=== PATIENT | female | born 1930 | race Caucasian/White ===

== ENCOUNTER 2019-02-17 14:38 | Observation (INO) | payer BC, OTHER ==
--- NOTE | 2019-02-17 14:41 | PDOC ---
History of Present Illness - General Stated Complaint: CVA/TIA Time Seen by Provider: 02/17/19 14:41 - History of Present Illness Initial Comments: 88 year old female, with PMH of HTN and HLD presenting via EMS with weakness and general disorientation starting at 13:00. The patient was well prior to the event without any noticeable abnormal behavior or other issues. She was fairly well appearing on presentation but stated that she felt off and weak. No fevers , chills, nausea, vomiting, diarrhea, chest pain, SOB, or other symptoms. Her mental status is typically good at home but occasionally she waxes and wanes. 02/17/19 14:44 NIH Stroke Scale - Last Known Well Date/Time & Onset Date Last Known Well: 02/17/19 Time Last Known Well: 13:00 - Initial Evaluation Level of consciousness: Alert Ask patient the month and their age: Answers both correctly Ask patient to open & close eyes; make fist and let go: Obeys both correctly Best gaze (horizontal eye movement): Normal Visual field testing: No visual field loss Facial paresis (Show teeth/raise eyebrows/close eyes tight): Normal symmetrical movement Motor Function: Left Arm: Normal Motor Function: Right Arm: Normal (extends arm 90 (or 45) degrees for 10 seconds without drift Motor Function: Left Leg: Normal (extends leg 30 degrees for 5 seconds without drift) Motor Function: Right Leg: Normal (extends leg 30 degrees for 5 seconds without drift) Limb Ataxia: No ataxia Sensory(Use pinprick test arms,legs,trunk,face/side to side): Normal Best language (Describe picture, name items, read sentences): Mild to moderate aphasia Dysarthria (read several words): Normal articulation Extinction and Inattention: No abnormality - Total Score NIH Stroke Scale Score: 1 Past History - Past Medical History Allergies/Adverse Reactions: Allergies Allergy/AdvReac Type Severity Reaction Status Date / Time No Known Allergies Allergy Verified 11/08/14 11:54 Home Medications: Ambulatory Orders Memantine HCl [Namenda -] 5 mg PO BID #0 tab 05/16/13 Pravastatin Sodium [Pravachol -] 40 mg PO HS #0 tablet 05/16/13 Quinapril/Hydrochlorothiazide [Accuretic 20-12.5 mg Tablet] 1 each PO DAILY #0 tablet 05/16/13 Donepezil HCl [Aricept -] 5 mg PO HS 02/17/19 Fesoterodine Fumarate [Toviaz] 4 mg PO DAILY 02/17/19 Hydrochlorothiazide 25 mg PO BID 02/17/19 HTN: Yes Hypercholesterolemia: Yes - Surgical History Abdominal Surgery: Yes - Suicide/Smoking/Psychosocial Hx Smoking Status: No Smoking History: Never smoked Number of Cigarettes Smoked Daily: 0 Hx Alcohol Use: No Review of Systems - Review of Systems Constitutional: No: Chills, Diaphoresis, Fever, Loss of Appetite Respiratory: No: Cough, Orthopnea, Shortness of Breath Cardiac (ROS): No: Chest Pain, Edema, Irregular Heart Rate ABD/GI: No: Nausea, Vomiting : No: Dysuria, Discharge Musculoskeletal: Yes: Joint Pain, Muscle Pain Integumentary: No: Lesions, Lumps Neurological: Yes: Weakness. No: Headache, Numbness, Paresthesia Hematologic/Lymphatic: No: Anemia, Blood Clots *Physical Exam - Physical Exam General Appearance: Yes: Nourished, Appropriately Dressed. No: Apparent Distress HEENT: positive: EOMI, Normal ENT Inspection, Normal Voice Neck: positive: Trachea midline, Normal Thyroid, Supple. negative: Tender, Rigid Respiratory/Chest: positive: Lungs Clear, Normal Breath Sounds. negative: Chest Tender, Respiratory Distress, Accessory Muscle Use Cardiovascular: positive: Regular Rhythm, Tachycardia. negative: Regular Rate Gastrointestinal/Abdominal: positive: Normal Bowel Sounds, Flat, Soft. negative : Tender Lymphatic: negative: Adenopathy, Tenderness Musculoskeletal: positive: Normal Inspection. negative: Decreased Range of Motion Extremity: positive: Normal Capillary Refill, Normal Inspection, Normal Range of Motion, Other (generally weak). negative: Tender Integumentary: positive: Normal Color, Dry, Warm Neurologic: positive: Fully Oriented, Alert, Normal Mood/Affect, Normal Response , Motor Strength 5/5 ED Treatment Course - LABORATORY CBC & Chemistry Diagram: 02/17/19 14:50 02/17/19 14:50 Medical Decision Making - Medical Decision Making Patient with global weakness and suspicion for TIA. NIHSS 1 on admission because of weakness and code hogue called. Deficits improved and patient nearly at her baseline. However, 02/17/19 17:28
[2019-02-17] MEDS ORDERED: SODIUM CHLORIDE 1,000 ML IV SCH ×2 (14:45→18:45)
[2019-02-17 15:09] LABS: BASO % 0.4 % (0-2.0); EOS % 1.5 % (0-4.5); HEMATOCRIT 39.4 % (32.4-45.2); LYMPH % 35.6 % (8-40); MEAN CELL VOLUME 87.8 fl (80-96); MONO % 5.7 % (3.8-10.2); NEUT % 56.8 % (42.8-82.8); PLATELET COUNT 319 K/MM3 (134-434); RBC 4.49 M/mm3 (3.60-5.2); RDW 13.6 % (11.6-15.6); WHITE BLOOD COUNT 13.4 K/mm3 (4.0-10.0)
[2019-02-17 15:22] LABS: INR 0.96 (0.83-1.09); PROTHROMBIN TIME (PATIENT) 11.3 SEC (9.7-13.0)
[2019-02-17 15:35] LABS: ALBUMIN 3.8 g/dl (3.4-5.0); ALK PHOS 82 U/L (45-117); ANION GAP 9 MMOL/L (8-16); BILIRUBIN,TOTAL 0.2 mg/dL (0.2-1); BLOOD UREA NITROGEN 21 mg/dL (7-18); CALCIUM 10.2 mg/dL (8.5-10.1); CHLORIDE 103 mmol/L (98-107); CHOLESTEROL 182 mg/dL (50-200); CO2 27 mmol/L (21-32); CREATININE 0.8 mg/dL (0.55-1.3); GLUCOSE,RANDOM 109 mg/dL (74-106); HDL CHOLESTEROL 44 mg/dL (40-60); POTASSIUM 3.8 mmol/L (3.5-5.1); SGOT/AST 14 U/L (15-37); SGPT/ALT 20 U/L (13-61); SODIUM 139 mmol/L (136-145); TOT PROT 7.6 g/dl (6.4-8.2); TRIGLYCERIDES 371 mg/dL (0-150)
--- NOTE | 2019-02-17 15:46 | PDOC ---
Documentation entered by Phoenix Stephens SCRIBE, acting as scribe for Laura Martínez MD. Laura Martínez MD: This documentation has been prepared by the bobbyibe, Phoenix Stephens SCRIBE, under my direction and personally reviewed by me in its entirety. I confirm that the documentation accurately reflects all work, treatment, procedures, and medical decision making performed by me. Attending Attestation - Resident Resident Name: Adarsh Gunderson - ED Attending Attestation I have performed the following: I have examined & evaluated the patient, The case was reviewed & discussed with the resident, I agree w/resident's findings & plan - HPI HPI: 02/17/19 15:53 The patient is a 88 year-old female, Cambodian speaking, with a significant past medical history of hypertension, hyperlipidemia, Earl's palsy, bilateral cataract surgery, and dementia, who presents to the ED via ems with family for sudden onset of AMS at about 1:40PM today. As per family, the patient was complaining of knee pain as she was walking down a steep flight of stairs at home and when she sat down at the bottom of the staircase stopped responding to the family, appeared sleepy x 25 minutes until ambulance arrived.. baseline with urinary incontinence, has been refusing being washed and bathed by family members. The family at bedside reports the patient is more alert now, however, not completely at baseline secondary to slower than usual speech and response times. The family at bedside aides in Cambodian translation. 02/17/19 15:58 - Physicial Exam PE: 02/17/19 15:34 Agree with the resident's HPI and PE as documented in the electronic medical record. NAD, awake and alert, PERRL, EOMI, MMM, nl conjunctiva, anicteric; neck supple. lungs clear, RRR, abdomen soft nontender. JIM x4, no focal neuro deficits. No peripheral edema. normal color for ethnicity, WWP. oriented to person and family members only. speech clear. no pronator drift. 5/5 drum attendant and plantar/dorsiflexion. SILT in all extrem. 02/17/19 15:45 02/17/19 15:54 - Medical Decision Making 02/17/19 15:54 See HPI for details Vital signs reviewed, wnl. DDx AMS: infection, UTI, metabolic/electrolyte derangement, encephalopathy, dehydration, CVA, ACS, Prior notes reviewed, including admissions, discharges and consultations. laboratory results and imaging reviewed, basic labs and lytes wnl, notable for + leukocytosis UA_unremarkable, 1+ leuk esterase and WBCs only <5. no urinary sx. CXR_unremarkable. Cardiac panel_neg EKG normal sinus rhythm at 66 bpm, no interval abnormalities, incomplete RBBB, ST and T wave segments and morphology normal. Nonspecific T wave abnormalities CT head neg for acute pathology/bleed or CVA, chronic atrophic changes noted. ED course - no events. not stroke code, sx improving and no focal neuro deficits , baseline with dementia. neuro cs as inpatient. dispo: admit for AMS workup, family made aware of impression and plan, agreeable 02/17/19 15:58 02/18/19 07:49 Heart Score/ECG Review #1 ECG reviewed & interpreted by me at: 14:45 General ECG Interpretation: Sinus Rhythm, Normal Rate Compared to previous ECG there are: No significant change 02/17/19 16:00 EKG normal sinus rhythm at 66 bpm, no interval abnormalities, incomplete RBBB, ST and T wave segments and morphology normal. Nonspecific T wave abnormalities
[2019-02-17 15:50] LABS: EPI CELLS 5.1 /HPF (0-5/HPF); URINE APPEARANCE CLEAR; URINE BACTERIA 147.9 /hpf (NEGATIVE); URINE BILIRUBIN NEGATIVE (NEGATIVE); URINE CASTS 3 /lpf (0-8); URINE COLOR YELLOW; URINE GLUCOSE (UA) NEGATIVE (NEGATIVE); URINE KETONE NEGATIVE (NEGATIVE); URINE LEUK ESTERASE 1+ (NEGATIVE); URINE NITRITE NEGATIVE (NEGATIVE); URINE PROTEIN NEGATIVE (NEGATIVE); URINE UROBILINOGEN 0.2 mg/dL (0.2-1.0); URINE WBC 5 /hpf (0-5)
[2019-02-17 16:18] LABS: URINE RBC 3.7 /hpf (0-4)
--- NOTE | 2019-02-17 17:15 | EKG ---
Test Reason : Blood Pressure : / mmHG Vent. Rate : 066 BPM Atrial Rate : 066 BPM P-R Int : 180 ms QRS Dur : 144 ms QT Int : 448 ms P-R-T Axes : 039 051 003 degrees QTc Int : 469 ms NORMAL SINUS RHYTHM RIGHT BUNDLE BRANCH BLOCK ABNORMAL ECG WHEN COMPARED WITH ECG OF 08-NOV-2014 15:37, NO SIGNIFICANT CHANGE WAS FOUND Confirmed by MD Patel Daniel ([id number]) on 02/17/2019 5:15:25 PM Referred By: Confirmed By:Ron Patel MD
--- NOTE | 2019-02-17 17:37 | HP ---
Admitting History and Physical - Smoking History Smoking history: Never smoked Aproximately how many cigarettes per day: 0 - Alcohol/Substance Use Hx Alcohol Use: No Home Medications - Allergies Allergies/Adverse Reactions: Allergies Allergy/AdvReac Type Severity Reaction Status Date / Time No Known Allergies Allergy Verified 11/08/14 11:54 - Home Medications Home Medications: Ambulatory Orders Memantine HCl [Namenda -] 5 mg PO BID #0 tab 05/16/13 Pravastatin Sodium [Pravachol -] 40 mg PO HS #0 tablet 05/16/13 Quinapril/Hydrochlorothiazide [Accuretic 20-12.5 mg Tablet] 1 each PO DAILY #0 tablet 05/16/13 Donepezil HCl [Aricept -] 5 mg PO HS 02/17/19 Fesoterodine Fumarate [Toviaz] 4 mg PO DAILY 02/17/19 Hydrochlorothiazide 25 mg PO BID 02/17/19 Physical Examination Vital Signs: Vital Signs Temperature 98.3 F 02/17/19 14:59 Pulse Rate 63 02/17/19 16:28 Respiratory Rate 20 02/17/19 16:28 Blood Pressure 137/55 L 02/17/19 16:28 O2 Sat by Pulse Oximetry (%) 91 L 02/17/19 16:28 Labs: CBC, BMP 02/17/19 14:50 02/17/19 14:50
--- NOTE | 2019-02-17 17:44 | CONSULT ---
Consult - text type - Consultation Consultation Note: NEUROLOGY CONSULT APPRECIATED: Events reviewed and discussed with Dr. Gunderson and DIANE Barakat. Family at bedside aiding in translation. Followed by Dr. Bello as an out- patient. This 88 yo RH F lives with her and has REGISTERED RADIOGRAPHER 5hrs/week for 5days/ week. PMHX includes dementia, HTN, HLD, urinary incontinence. Maintained on: memantine 5 mg BID, donepezil 5 mg qd, pravastatin, quinapril, HCTZ, fesoterodine (anticholinergic/antispasmodic). Diagnosis of dementia made at age 72, with strong family history in her brother and father. Family notes many years of urinary incontinence and increasing gait dysfunction , with 3 falls within past year. Family notes patient is recently "seing people" and "paranoid." Pt is vague historian stating "I feel so-so" and cannot add useful history. ROS: sig for many years of low back and "sciatic" pains. Head CT (reviewed): Severe atrophy with ex vacuo ventricular dilation. Periventricular ischemic changes. WBC=13.4 Urine WBC=5 TG 371 LIZZIE: Obese. Cor reg. No bruit. Neck supple. Legs appear erythematous and warm. Neg SLR. NEURO: Speech sparse. Ox "Hospital." No month. No year. No president. No recall. + glabella, grasps CNII-CNXII: EOM's full. Full lester appreciated. No facial. Motor: No drift. Strength normal. Decreased JAKE's R > L. No cogwheeling. Reflexes brisk throughout. Plantars silent. Coordination: No FTN dystaxia Sensation: Withdraws to pinch in all fours. 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 Progressive gait dysfunction (likely multi-factorial) All worsened by Toxic-Metabolic Encephalopathy (TME) possibly due to infection (cellulitis) and anticholinergic meds (especially with hallucinations) Suggest: R/O Occult Infection (i.e urosepsis, cellulitis) ID consult Check B12, TSH, RPR D/C Fesoterodine Continue donepezil and memantine. Quetiapine 12.5 mg HS PRN agitation. Will notify Dr. Bello. Thank you very much, Scot Becerra MD
--- NOTE | 2019-02-17 18:17 | HP ---
CHIEF COMPLAINT: AMS PCP: Dr. Rueda Neurologist: Dr. Bello HISTORY OF PRESENT ILLNESS: 88 yof with PMHx of dementia, HTN, HLD, urinary incontinence, gait instability, Earl's Palsy, living at home with her , son lives close by, was brought in today with AMS. Per the son, patient's noted that the patient walked down the stairs today AM, sat on the chair but was not herself. Son came over, saw his mother sitting on chair, with eyes close, not responding to his voice. She would flicker her eyes when called by son but would not open, he tried to shake her but she still kept doing the same. They called PCP who advised to bring patient to the ED. When EMS came in and tried to check fingerstick, is when patient shouted and started becoming more responsive. She gradually woke up and is at her baseline in the ED, per family. Patient recalls coming down stairs, and sitting on the chair, being in ambulance and everything since, but does not recall being shaken up by the son. 12 point ROS done, per family patient has not been sleeping well and they have asked PCP/neurologist for sleeping pills but have been advised against the same. ROS neg for any fevers, chills, URI like illness, chest pain, dyspnea, palpitations, abdominal pain or concerns, decreased oral intak ER course was notable for: (1) CT brain neg for acute process (2) Neurology consult Recent Travel: none PAST MEDICAL HISTORY: ementia, HTN, HLD, urinary incontinence, gait instability PAST SURGICAL HISTORY: total hysterectomy Social History: Smoking: remote, quit in her 60s Alcohol: starting drinking more with onset of dementia, none recently Drugs: denies lives at home with , son lives closeby, walks independently, has in home tutor few hours Family History: Allergies No Known Allergies Allergy (Verified 11/08/14 11:54) HOME MEDICATIONS: Home Medications Medication Instructions Recorded Pravastatin Sodium [Pravachol -] 40 mg PO HS #0 tablet 05/16/13 Donepezil HCl [Aricept -] 5 mg PO HS 02/17/19 Fesoterodine Fumarate [Toviaz] 4 mg PO DAILY 02/17/19 Hydrochlorothiazide 25 mg PO BID 02/17/19 Memantine HCl [Namenda -] 10 mg PO BID 02/17/19 Quinapril HCl 20 mg PO BID 02/17/19 REVIEW OF SYSTEMS 12 point ROS done, per HPI PHYSICAL EXAMINATION Vital Signs - 24 hr 02/17/19 02/17/19 02/17/19 14:59 16:15 16:25 Temperature 98.3 F Pulse Rate 69 67 Pulse Rate [ Apical] Respiratory 20 Rate Blood Pressure 161/71 Blood Pressure [Left Arm] O2 Sat by Pulse 100 100 91 L Oximetry (%) 02/17/19 16:28 Temperature Pulse Rate Pulse Rate [ 63 Apical] Respiratory 20 Rate Blood Pressure Blood Pressure 137/55 L [Left Arm] O2 Sat by Pulse 91 L Oximetry (%) GENERAL: Awake, alert, oriented to person, place, not to time (per family, that' s her baseline) HEAD: Normal with no signs of trauma. EYES: Pupils equal, round and reactive to light, extraocular movements intact, sclera anicteric, conjunctiva clear. No lid lag. EARS, NOSE, THROAT: Ears normal, nares patent, oropharynx clear without exudates. Moist mucous membranes. NECK: Normal range of motion, soft, supple, no JVD LUNGS: Breath sounds equal, clear to auscultation bilaterally. No wheezes, and no crackles. No accessory muscle use. HEART: Regular rate and rhythm, normal S1 and S2 ABDOMEN: Soft, obese, NT throughout, no voluntary or involuntary guarding or rigidity, positive bowel sounds MUSCULOSKELETAL: Normal range of motion at all joints. No bony deformities or tenderness. No CVA tenderness. UPPER EXTREMITIES: 2+ pulses, warm, well-perfused. No cyanosis. No clubbing. No peripheral edema. LOWER EXTREMITIES: pos palpable DP pulses bilaterally, varicosities, mild erythema lower 1/3rd both legs R>L NEUROLOGICAL: AAOX2, facial symmetry, tongue midline, EOMI, sensation intact and symmetric to gross touch bilaterally, power 5/5 generalized, plantar silent , no pronator driftCranial nerves II-XII intact. Speech sparse, gait not observed PSYCHIATRIC: Cooperative. Good eye contact. Appropriate mood and affect. SKIN: Warm, dry, normal turgor, no rashes or lesions noted, normal capillary refill. Laboratory Results - last 24 hr 02/17/19 02/17/19 02/17/19 14:50 14:50 14:50 WBC 13.4 H RBC 4.49 Hgb 13.0 Hct 39.4 MCV 87.8 MCH 29.0 MCHC 33.0 RDW 13.6 Plt Count 319 MPV 9.0 Absolute Neuts (auto) 7.6 Neutrophils % 56.8 Lymphocytes % 35.6 Monocytes % 5.7 Eosinophils % 1.5 Basophils % 0.4 Nucleated RBC % 0 PT with INR 11.30 INR 0.96 Sodium 139 Potassium 3.8 Chloride 103 Carbon Dioxide 27 Anion Gap 9 BUN 21 H Creatinine 0.8 Creat Clearance w eGFR 67.54 Random Glucose 109 H Calcium 10.2 H Total Bilirubin 0.2 AST 14 L ALT 20 Alkaline Phosphatase 82 Creatine Kinase 92 Troponin I < 0.02 Total Protein 7.6 Albumin 3.8 Triglycerides 371 H Cholesterol 182 Total LDL Cholesterol 103 H HDL Cholesterol 44 Urine Color Urine Appearance Urine pH Ur Specific [place] Urine Protein Urine Glucose (UA) Urine Ketones Urine Blood Urine Nitrite Urine Bilirubin Urine Urobilinogen Ur Leukocyte Esterase Urine WBC (Auto) Urine RBC (Auto) Urine Casts (Auto) U Epithel Cells (Auto) Urine Bacteria (Auto) Blood Type Antibody Screen 02/17/19 02/17/19 14:50 15:13 WBC RBC Hgb Hct MCV MCH MCHC RDW Plt Count MPV Absolute Neuts (auto) Neutrophils % Lymphocytes % Monocytes % Eosinophils % Basophils % Nucleated RBC % PT with INR INR Sodium Potassium Chloride Carbon Dioxide Anion Gap BUN Creatinine Creat Clearance w eGFR Random Glucose Calcium Total Bilirubin AST ALT Alkaline Phosphatase Creatine Kinase Troponin I Total Protein Albumin Triglycerides Cholesterol Total LDL Cholesterol HDL Cholesterol Urine Color Yellow Urine Appearance Clear Urine pH 7.0 Ur Specific [place] 1.009 L Urine Protein Negative Urine Glucose (UA) Negative Urine Ketones Negative Urine Blood Negative Urine Nitrite Negative Urine Bilirubin Negative Urine Urobilinogen 0.2 Ur Leukocyte Esterase 1+ H Urine WBC (Auto) 5 Urine RBC (Auto) 3.7 Urine Casts (Auto) 3 U Epithel Cells (Auto) 5.1 Urine Bacteria (Auto) 147.9 Blood Type O POSITIVE Antibody Screen Negative CT brain results reviewed EKG NSR RBBB ASSESSMENT/PLAN: 88 yof with PMHx of dementia, HTN, HLD, urinary incontinence, gait instability, Earl's Palsy admitted with AMS -AMS, R/o TIA, vs encephalopathy from infection?cellulits, vs behavioral from dementia (per son was flickering her eyes when he tried to shake her and woke up with finger sticks with EMS), r/o syncope -HTN -HLD -Insomnia -Dementia -Urinary incontinence -Gait instability Plan: Stroke Tele, neuro checks MRI brain/Carotid/2D echo. Bedside swallow eval, PO as tolerated. Keflex for possible LE cellulitis Concerns for sleep deprivation per family. Continue home meds DVTPPX heparin PT eval Dispo in 24 hours if w/u neg and no new concerns. Discussed with patient and family at bedside in detail, all questions answered total admit time spent 55 min . Visit type - Emergency Visit Emergency Visit: Yes Care time: The patient presented to the Emergency Department on the above date and was hospitalized for further evaluation of their emergent condition. - New Patient This patient is new to me today: Yes Date on this admission: 02/17/19 - Critical Care Critical Care patient: No
[2019-02-17] MEDS ORDERED: MEMANTINE HCL 5 MG TABLET (UD) PO SCH (22:00)
[2019-02-17] MEDS ORDERED: DONEPEZIL HCL 5 MG TABLET (FP) PO SCH (22:00)
[2019-02-17] MEDS ORDERED: CEPHALEXIN MONOHYDRATE 500 MG CAPSULE (UD) ONE (22:08)
[2019-02-17] MEDS ORDERED: DOCUSATE SODIUM 100 MG CAPSULE (FP) PO ONE (22:08)
[2019-02-17] MEDS ORDERED: DONEPEZIL HCL 5 MG TABLET (FP) ONE (22:08)
[2019-02-17] MEDS: CEPHALEXIN MONOHYDRATE 500 MG CAPSULE (UD) PO SCH (22:20)
[2019-02-17] MEDS: DOCUSATE SODIUM 100 MG CAPSULE (FP) PO SCH (22:20)
[2019-02-18] MEDS: MEMANTINE HCL 10 MG TABLET (FP) PO SCH ×2 (00:14→09:12)
[2019-02-18 03:43] VITALS: BMI 34.3
[2019-02-18] MEDS: CEPHALEXIN MONOHYDRATE 500 MG CAPSULE (UD) PO SCH ×4 (05:22→12:41)
[2019-02-18] MEDS: HEPARIN NA (PORCINE) 5,000 UNITS/ML 1ML VIAL SQ SCH ×3 (05:22→13:49)
[2019-02-18] MEDS ORDERED: ONDANSETRON 4 MG/2 ML VIAL IVPUSH PRN (07:56)
[2019-02-18] MEDS ORDERED: MAG HYDROX/AL HYDROX/SIMETH 30 ML UNIT-DOSE CUP PO PRN (07:56)
[2019-02-18] MEDS ORDERED: PANTOPRAZOLE SODIUM 40 MG VIAL IVPUSH ONE (08:40)
--- NOTE | 2019-02-18 08:58 | PN ---
Progress Note (short form) - Note Progress Note: CHIEF COMPLAINT: AMS PCP: Dr. Rueda HISTORY OF PRESENT ILLNESS: 88 yo F with PMHx of dementia, HTN, HLD, urinary incontinence, gait instability , Earl's Palsy, living at home with her , son lives close by, was brought in today with AMS. Per the son, patient's noted that the patient walked down the stairs day of admission, sat on the chair but was not herself. Son came over, saw his mother sitting on chair, with eyes close, not responding to his voice. She would flicker her eyes when called by son but would not open, he tried to shake her but she still kept doing the same. They called PCP who advised to bring patient to the ED. When EMS came in and tried to check fingerstick, is when patient shouted and started becoming more responsive. She gradually woke up and was at her baseline in the ED, per family. In ER, Dr. Becerra contacted as concern for CVA, appreciate his mgmt, he contacted me to take over case as patient known to me. CT head completed and without acute changes. Discussed with hospitalist this AM and patient without focal deficits, therefore advised repeat CT head as she is not likely to tolerate MRI due to behavioral disturbance and would like to avoid sedatives that may progess her confusion. Advised workup for toxic metabolic vs infectious causes. Maintain adequate hydration and PO intake. Family concern about lack of sleep at night but this episode concerning for AMS and adding sedatives would not be in patient's best interest. 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 Family History: HTN Allergies No Known Allergies Allergy (Verified 11/08/14 11:54) HOME MEDICATIONS: Home Medications Medication Instructions Recorded Pravastatin Sodium [Pravachol -] 40 mg PO HS #0 tablet 05/16/13 Donepezil HCl [Aricept -] 5 mg PO HS 02/17/19 Fesoterodine Fumarate [Toviaz] 4 mg PO DAILY 02/17/19 Hydrochlorothiazide 25 mg PO BID 02/17/19 Memantine HCl [Namenda -] 10 mg PO BID 02/17/19 Quinapril HCl 20 mg PO BID 02/17/19 REVIEW OF SYSTEMS Denies headache, dizzyness, no neck pain, no joint discomfort, chest pain, shortness of breath, abdominal discomfort, nausea, vomiting, no rash, no pruitis PHYSICAL EXAMINATION Vital Signs Period Temp Pulse Resp BP Sys/Henry Pulse Ox Last 24 Hr 97.7 F-98.3 F 63-77 18-20 129-162/55-89 91-100 GENERAL: Awake, alert, oriented to person, place, not to time (per family, that' s her baseline) HEAD: Normal with no signs of trauma. EYES: Pupils equal, round and reactive to light, extraocular movements intact, sclera anicteric, conjunctiva clear. No lid lag. EARS, NOSE, THROAT: Ears normal, nares patent, oropharynx clear without exudates. Moist mucous membranes. NECK: Normal range of motion, soft, supple, no JVD LUNGS: Breath sounds equal, clear to auscultation bilaterally. No wheezes, and no crackles. No accessory muscle use. HEART: Regular rate and rhythm, normal S1 and S2 ABDOMEN: Soft, obese, NT throughout, no voluntary or involuntary guarding or rigidity, positive bowel sounds MUSCULOSKELETAL: Normal range of motion at all joints. No bony deformities or tenderness. No CVA tenderness. UPPER EXTREMITIES: 2+ pulses, warm, well-perfused. No cyanosis. No clubbing. No peripheral edema. LOWER EXTREMITIES: pos palpable DP pulses bilaterally, varicosities, mild erythema lower 1/3rd both legs R>L NEUROLOGICAL: AAOX2, facial symmetry, tongue midline, EOMI, sensation intact and symmetric to gross touch bilaterally, 5/5 generalized, plantar silent, no pronator drift Cranial nerves II-XII intact. Speech sparse, gait not observed PSYCHIATRIC: Cooperative. Good eye contact. Appropriate mood and affect. SKIN: Warm, dry, normal turgor, no rashes or lesions noted, normal capillary refill. Laboratory Results - last 24 hr 02/17/19 02/17/19 02/17/19 14:50 14:50 14:50 WBC 13.4 H RBC 4.49 Hgb 13.0 Hct 39.4 MCV 87.8 MCH 29.0 MCHC 33.0 RDW 13.6 Plt Count 319 MPV 9.0 Absolute Neuts (auto) 7.6 Neutrophils % 56.8 Lymphocytes % 35.6 Monocytes % 5.7 Eosinophils % 1.5 Basophils % 0.4 Nucleated RBC % 0 PT with INR 11.30 INR 0.96 Sodium 139 Potassium 3.8 Chloride 103 Carbon Dioxide 27 Anion Gap 9 BUN 21 H Creatinine 0.8 Creat Clearance w eGFR 67.54 Random Glucose 109 H Calcium 10.2 H Total Bilirubin 0.2 AST 14 L ALT 20 Alkaline Phosphatase 82 Creatine Kinase 92 Troponin I < 0.02 Total Protein 7.6 Albumin 3.8 Triglycerides 371 H Cholesterol 182 Total LDL Cholesterol 103 H HDL Cholesterol 44 Urine Color Urine Appearance Urine pH Ur Specific [place] Urine Protein Urine Glucose (UA) Urine Ketones Urine Blood Urine Nitrite Urine Bilirubin Urine Urobilinogen Ur Leukocyte Esterase Urine WBC (Auto) Urine RBC (Auto) Urine Casts (Auto) U Epithel Cells (Auto) Urine Bacteria (Auto) Blood Type Antibody Screen 02/17/19 02/17/19 14:50 15:13 WBC RBC Hgb Hct MCV MCH MCHC RDW Plt Count MPV Absolute Neuts (auto) Neutrophils % Lymphocytes % Monocytes % Eosinophils % Basophils % Nucleated RBC % PT with INR INR Sodium Potassium Chloride Carbon Dioxide Anion Gap BUN Creatinine Creat Clearance w eGFR Random Glucose Calcium Total Bilirubin AST ALT Alkaline Phosphatase Creatine Kinase Troponin I Total Protein Albumin Triglycerides Cholesterol Total LDL Cholesterol HDL Cholesterol Urine Color Yellow Urine Appearance Clear Urine pH 7.0 Ur Specific [place] 1.009 L Urine Protein Negative Urine Glucose (UA) Negative Urine Ketones Negative Urine Blood Negative Urine Nitrite Negative Urine Bilirubin Negative Urine Urobilinogen 0.2 Ur Leukocyte Esterase 1+ H Urine WBC (Auto) 5 Urine RBC (Auto) 3.7 Urine Casts (Auto) 3 U Epithel Cells (Auto) 5.1 Urine Bacteria (Auto) 147.9 Blood Type O POSITIVE Antibody Screen Negative CT brain results reviewed EKG NSR RBBB ASSESSMENT/PLAN: 88 yo F with PMHx of dementia, HTN, HLD, urinary incontinence, gait instability , Earl's Palsy, living at home with her , son lives close by, was brought in today with AMS. Per the son, patient's noted that the patient walked down the stairs day of admission, sat on the chair but was not herself. Son came over, saw his mother sitting on chair, with eyes close, not responding to his voice. She would flicker her eyes when called by son but would not open, he tried to shake her but she still kept doing the same. They called PCP who advised to bring patient to the ED. When EMS came in and tried to check fingerstick, is when patient shouted and started becoming more responsive. She gradually woke up and was at her baseline in the ED, per family. In ER, Dr. Becerra contacted as concern for CVA, appreciate his mgmt, he contacted me to take over case as patient known to me. CT head completed and without acute changes. Discussed with hospitalist this AM and patient without focal deficits, therefore advised repeat CT head as she is not likely to tolerate MRI due to behavioral disturbance and would like to avoid sedatives that may progess her confusion. Advised workup for toxic metabolic vs infectious causes. Maintain adequate hydration and PO intake. Family concern about lack of sleep at night but this episode concerning for AMS and adding sedatives would not be in patient's best interest. Monitor finger sticks, maintain euglycemic range. Abx per primary for cellulitis which may also precipitate AMS. Will follow up repeat CT head. Improving mental status, fatigued appearing but stable. PT eval, fall precautions. DVT ppx. Discussed with son at bedside in detail.
[2019-02-18] MEDS: DOCUSATE SODIUM 100 MG CAPSULE (FP) PO SCH (09:11)
[2019-02-18] MEDS ORDERED: ASPIRIN COATED 81 MG TABLET.EC PO SCH (10:00)
--- NOTE | 2019-02-18 12:13 | CONSULT ---
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 Progressive gait dysfunction (likely multi-factorial) All worsened by Toxic-Metabolic Encephalopathy (TME) possibly due to infection (cellulitis) and anticholinergic meds (especially with hallucinations) Selected Entries 02/17/19 02/18/19 02/18/19 14:59 03:00 06:00 Temperature 98.3 F 97.7 F 97.7 F Laboratory Tests 02/17/19 14:50 WBC 13.4 H - Smoking History Smoking history: Never smoked Have you smoked in the past 12 months: No Aproximately how many cigarettes per day: 0 - Alcohol/Substance Use Hx Alcohol Use: No History - Admission Reason For Visit: TRANSIENT ISCHEMIC ATTACK - Hearing Hearing: Impaired, Both Hearing Aide: No Speech Evaluation - Communication Primary Language: DIVEHI
[2019-02-18 14:10] VITALS: BP 160/63; PULSE 67; TEMP 98.1
--- NOTE | 2019-02-18 14:15 | ECHO ---
Name: SAMAN SÁNCHEZ Exam:Adult Echocardiogram Study Date: 02/18/2019 11:21 AM Age: 88 yrs Reason For Study: TIA Height: 60 in Weight: 175 lb BSA: 1.8 m2 MMode/2D Measurements & Calculations LAV (MOD-bp): 52.7 ml Doppler Measurements & Calculations MV E max earl: 88.3 cm/sec Ao V2 max: 191.4 cm/sec MV A max earl: 116.9 cm/sec Ao max P.7 mmHg MV E/A: 0.76 MV dec time: 0.19 sec LV V1 max P.3 mmHg MR max earl: 403.1 cm/sec LV V1 max: 125.1 cm/sec MR max P.9 mmHg TR max earl: 256.5 cm/sec Med Peak E' Earl: 7.3 cm/sec TR max P.3 mmHg Med E/e': 12.1 Lat Peak E' Earl: 6.0 cm/sec Lat E/e': 14.8 PI Vmax: 86.9 cm/sec Procedure The study was technically difficult with many images being suboptimal in quality. Left Ventricle The left ventricle is not well visualized. The left ventricular ejection fraction is grossly normal. E/A reversal consistent with but not diagnostic of poor LV compliance. Regional wall motion abnormalities cannot be excluded due to limited visualization. Right Ventricle The right ventricle is not well visualized. Atria The left atrium is not well visualized. Right atrium not well visualized. Mitral Valve The mitral valve is not well visualized. There is no mitral valve stenosis. There is trace to mild mi tral regurgitation. Tricuspid Valve The tricuspid valve is not well visualized. There is no tricuspid stenosis. There is trace tricuspid regurgitation. Right ventricular systolic pressure is normal. Aortic Valve The aortic valve is not well visualized. No hemodynamically significant valvular aortic stenosis. No aortic regurgitation is present. Pulmonic Valve The pulmonic valve is not well visualized. There is no pulmonic valvular stenosis. Trace pulmonic amberly vular regurgitation. Great Vessels The aortic root is not well visualized. Pericardium/Pleura There is no pericardial effusion. Interpretation Summary The study was technically difficult with many images being suboptimal in quality. The left ventricle is not well visualized. The left ventricular ejection fraction is grossly normal. Trace pulmonic valvular regurgitation. The tricuspid valve is not well visualized. There is trace tricuspid regurgitation. Right ventricular systolic pressure is normal. Regional wall motion abnormalities cannot be excluded due to limited visualization. E/A reversal consistent with but not diagnostic of poor LV compliance There is trace to mild mitral regurgitation. MD Santosh Jernigan 02/18/2019 02:14 PM
--- NOTE | 2019-02-18 14:39 | DS ---
Physical Exam: SUBJECTIVE: Patient seen and examined, with family pleasant, no complaints. OBJECTIVE: Vital Signs Period Temp Pulse Resp BP Sys/Henry Pulse Ox Last 24 Hr 97.7 F-98.3 F 63-77 18-20 129-162/55-89 91-100 Intake & Output 02/15/19 02/16/19 02/17/19 02/18/19 23:59 23:59 23:59 23:59 Intake Total 300 Output Total 1 Balance 299 Weight 175 lb 187 lb 9.6 oz PHYSICAL EXAM GENERAL: Awake, alert, oriented to person, place, not to time (per family, that' s her baseline) HEAD: Normal with no signs of trauma. EYES: Pupils equal, round and reactive to light, extraocular movements intact, sclera anicteric, conjunctiva clear. No lid lag. EARS, NOSE, THROAT: Ears normal, nares patent, oropharynx clear without exudates. Moist mucous membranes. NECK: Normal range of motion, soft, supple, no JVD LUNGS: Breath sounds equal, clear to auscultation bilaterally. No wheezes, and no crackles. No accessory muscle use. HEART: Regular rate and rhythm, normal S1 and S2 ABDOMEN: Soft, obese, NT throughout, no voluntary or involuntary guarding or rigidity, positive bowel sounds MUSCULOSKELETAL: Normal range of motion at all joints. No bony deformities or tenderness. No CVA tenderness. UPPER EXTREMITIES: 2+ pulses, warm, well-perfused. No cyanosis. No clubbing. No peripheral edema. LOWER EXTREMITIES: pos palpable DP pulses bilaterally, varicosities, mild erythema lower 1/3rd both legs R>L, improved from admission NEUROLOGICAL: AAOX2, facial symmetry, tongue midline, EOMI, sensation intact and symmetric to gross touch bilaterally, power 5/5 generalized, plantar silent , no pronator drift, Cranial nerves II-XII intact. Speech sparse, gait not observed PSYCHIATRIC: Cooperative. Good eye contact. Appropriate mood and affect. SKIN: Warm, dry, normal turgor, no rashes or lesions noted, normal capillary refill. LABS Laboratory Results - last 24 hr 02/17/19 02/17/19 02/17/19 14:50 14:50 14:50 WBC 13.4 H RBC 4.49 Hgb 13.0 Hct 39.4 MCV 87.8 MCH 29.0 MCHC 33.0 RDW 13.6 Plt Count 319 MPV 9.0 Absolute Neuts (auto) 7.6 Neutrophils % 56.8 Lymphocytes % 35.6 Monocytes % 5.7 Eosinophils % 1.5 Basophils % 0.4 Nucleated RBC % 0 PT with INR 11.30 INR 0.96 Sodium 139 Potassium 3.8 Chloride 103 Carbon Dioxide 27 Anion Gap 9 BUN 21 H Creatinine 0.8 Creat Clearance w eGFR 67.54 POC Glucometer Random Glucose 109 H Calcium 10.2 H Total Bilirubin 0.2 AST 14 L ALT 20 Alkaline Phosphatase 82 Creatine Kinase 92 Troponin I < 0.02 Total Protein 7.6 Albumin 3.8 Triglycerides 371 H Cholesterol 182 Total LDL Cholesterol 103 H HDL Cholesterol 44 Urine Color Urine Appearance Urine pH Ur Specific [place] Urine Protein Urine Glucose (UA) Urine Ketones Urine Blood Urine Nitrite Urine Bilirubin Urine Urobilinogen Ur Leukocyte Esterase Urine WBC (Auto) Urine RBC (Auto) Urine Casts (Auto) U Epithel Cells (Auto) Urine Bacteria (Auto) Blood Type Antibody Screen 02/17/19 02/17/19 02/17/19 14:50 15:13 21:12 WBC RBC Hgb Hct MCV MCH MCHC RDW Plt Count MPV Absolute Neuts (auto) Neutrophils % Lymphocytes % Monocytes % Eosinophils % Basophils % Nucleated RBC % PT with INR INR Sodium Potassium Chloride Carbon Dioxide Anion Gap BUN Creatinine Creat Clearance w eGFR POC Glucometer Random Glucose Calcium Total Bilirubin AST ALT Alkaline Phosphatase Creatine Kinase Troponin I Total Protein Albumin Triglycerides Cholesterol Total LDL Cholesterol HDL Cholesterol Urine Color Yellow Urine Appearance Clear Urine pH 7.0 Ur Specific [place] 1.009 L Urine Protein Negative Urine Glucose (UA) Negative Urine Ketones Negative Urine Blood Negative Urine Nitrite Negative Urine Bilirubin Negative Urine Urobilinogen 0.2 Ur Leukocyte Esterase 1+ H Urine WBC (Auto) 5 Urine RBC (Auto) 3.7 Urine Casts (Auto) 3 U Epithel Cells (Auto) 5.1 Urine Bacteria (Auto) 147.9 Blood Type O POSITIVE O POSITIVE Antibody Screen Negative 02/18/19 05:16 WBC RBC Hgb Hct MCV MCH MCHC RDW Plt Count MPV Absolute Neuts (auto) Neutrophils % Lymphocytes % Monocytes % Eosinophils % Basophils % Nucleated RBC % PT with INR INR Sodium Potassium Chloride Carbon Dioxide Anion Gap BUN Creatinine Creat Clearance w eGFR POC Glucometer 157 Random Glucose Calcium Total Bilirubin AST ALT Alkaline Phosphatase Creatine Kinase Troponin I Total Protein Albumin Triglycerides Cholesterol Total LDL Cholesterol HDL Cholesterol Urine Color Urine Appearance Urine pH Ur Specific [place] Urine Protein Urine Glucose (UA) Urine Ketones Urine Blood Urine Nitrite Urine Bilirubin Urine Urobilinogen Ur Leukocyte Esterase Urine WBC (Auto) Urine RBC (Auto) Urine Casts (Auto) U Epithel Cells (Auto) Urine Bacteria (Auto) Blood Type Antibody Screen CT brain 02/17- There is moderate volume loss and ventricular dilatation. No mass lesion, gross acute infarct or intracranial hemorrhage are identified. There is no shift of the midline structures. The craniocervical junction appears unremarkable. Visualized paranasal sinuses are well aerated with moderate deviation of the nasal septum to the right. The mastoid air cells are well aerated and the calvarium is intact. Calcification of the cavernous carotid arteries are present IMPRESSION: Moderate volume loss, ventricular dilatation and periventricular chronic microvascular ischemic disease changes. No CT evidence of an acute infarct is identified. Correlate clinically to determine further evaluation and follow-up. Carotid duplex: The study is somewhat limited. A small amount of atherosclerotic plaque is identified on real time imaging of the common carotid and proximal internal and external carotid arteries bilaterally. The plaque is most extensive at the right carotid bifurcation. Doppler velocity measurements are within normal limits within these vessels with no velocity elevations suspicious for hemodynamically significant stenoses. Forward flow is present within both vertebral arteries. IMPRESSION: Mild atherosclerotic disease with no evidence of hemodynamically significant stenoses. Somewhat limited study as described above. Repeat CT head 02/18 - unchanged 2D echo: LV EF grossly normal , trace pulmonary regurgitation, poor LV compliance, trace to mild mitral regurgitation, limited study HOSPITAL COURSE: Date of Admission:02/17/19 Date of Discharge: 02/18/19 Minutes to complete discharge: 40 Discharge Summary Reason For Visit: TRANSIENT ISCHEMIC ATTACK Hospital Course: 88 yof with PMHx of dementia, HTN, HLD, urinary incontinence, gait instability, Earl's Palsy, living at home with her , son lives close by, was brought in with [facility]. Patient was noted with her eyes closed, sitting in a chair, not responding to her son's voice but flickering her eyes, woke up and screamed when EMS attempted to do a finger stick and her mental status continued to improve and was at baseline by the time was seen in the ED. She was seen by neurology and her symptoms were not suspicious for TIA/CVA rather with a metabolic or infectious process. She was watched on telemetry with no concerns, had 2D echo, carotid duplex as above. She had repeat CT head per neurology recs with no new concerns. She was placed on keflex with suspected LE cellulitis with improvement. She was seen by Physical therapy and family expressed wish to take her home. She will be discharge home with family and services in stable condition. Condition: Stable - Instructions Diet, Activity, Other Instructions: You were admitted with change in mental status, you were seen by neurologist, suspicion for stroke was low. You received repeat CT scan of your head without any new concerns. You were watched on monitor, also had 2D echocardiogram and carotid duplex. You were placed on oral antibiotic for concern for leg cellulitis, your leg symptoms improved and you are given a 5 day course. You were evaluated by physical therapist. MEDICATIONS: Keflex 500 mg 4 times daily for a 5 day course Continue other medications as before INSTRUCTIONS: Maintain adequate hydration Your blood cultures were sent, final report currently pending. You can have your doctor follow up results in 24-48 hours, however, you will be notified of any concerns on the same. FOLLOW UP: With Dr. Rueda in [address] Bello in 1-2 weeks If you notice any new fevers, chills, changes in mental status or any new concerns, please call 911 or come to ED. Referrals: Rakesh Bello MD [Staff Physician] - Drew Rueda MD [Staff Physician] - Disposition: VNS/HOME HEALTH CARE - Home Medications Comprehensive Discharge Medication List: Ambulatory Orders Pravastatin Sodium [Pravachol -] 40 mg PO HS #0 tablet 05/16/13 Donepezil HCl [Aricept -] 5 mg PO HS 02/17/19 Fesoterodine Fumarate [Toviaz] 4 mg PO DAILY 02/17/19 Hydrochlorothiazide 25 mg PO BID 02/17/19 Memantine HCl [Namenda -] 10 mg PO BID 02/17/19 Quinapril HCl 20 mg PO BID 02/17/19 Aspirin Coated [Ecotrin -] 81 mg PO DAILY #30 tablet.ec 02/18/19 Cephalexin Monohydrate [Keflex -] 500 mg PO Q6HPO 5 Days #20 capsule 02/18/19 This patient is new to me today: No Emergency Visit: Yes ED Registration Date: 02/17/19 Care time: The patient presented to the Emergency Department on the above date and was hospitalized for further evaluation of their emergent condition. Critical Care patient: No - Discharge Referral Referred to [facility] Med P.C.: No
== END 2019-02-18 15:58 | disposition home health service (06) ==
LOC: JER 14:38 → JERBED 16:48 → J4S 02-18 02:28
PROVIDERS: ADMIT Hospitalist; ATTEND Hospitalist
PROC: 3E033GC Introduction of Other Therapeutic Substance into Peripheral Vein, Percutaneous Approach (ICD-10-PCS; principal; 2019-02-17)
PROC: 3E0337Z Introduction of Electrolytic and Water Balance Substance into Peripheral Vein, Percutaneous Approach (ICD-10-PCS; 2019-02-17)
DX: G45.9 Transient cerebral ischemic attack, unspecified (principal); I10 Essential (primary) hypertension; E78.5 Hyperlipidemia, unspecified; F03.90 Unspecified dementia, unspecified severity, without behavioral disturbance, psychotic disturbance, mood disturbance, and anxiety; R26.2 Difficulty in walking, not elsewhere classified; R32 Unspecified urinary incontinence; Z86.69 Personal history of other diseases of the nervous system and sense organs
CPT/HCPCS: 36415; 70450-TC; 71045-TC-FY; 80053; 81003; 82465; 82550; 82962; 83718; 83721; 84478; 84484; 85025; 85610; 86850; 86900; 86901; 87040; 93005; 93010; 93306-TC; 93880-TC; 96374; 96375; 97116-GP; 97161-GP; 99285-25; G0378; J1644; J7030